=== PATIENT | female | born 1980 | race African-American/Black ===

== ENCOUNTER 2018-03-31 08:12 | Emergency (ER) | payer OTHER ==
--- OUTSIDE RECORDS SUMMARY | 2018-03-31 08:15 | XMS REPORT | Continuity of Care Document ---
:1980 Author Organization [facility] Address [address] [place] [address] Phone Unavailable Care Team Providers Name Role Phone DAHIANA MANZANO Primary Care Physician Insurance Providers Guarantor Sabino Marin Address [address] [place] [address] Email NO EMAIL Payer [facility] Policy Number [id number] Subscriber's Name Sabino Marin Relationship Self / Same As Patient Group Number NA Group Name NA Advance Directives Directive Response Recorded Date/Time Advance Directive on File No 03/30/18 8:09pm Patient/Family Given Education Material R/T Y - 03/30/18..AW 03/30/18 8:09pm Directives? Chief Complaint and Reason for Visit Chief Complaint Abdominal/GI/Nausea/Vomiting Reason for Visit Abdominal pain Problems Medical Problem Onset Date Status Abdominal pain Unknown Acute Abdominal pain Unknown Acute Abnormal posture Unknown Gas Unknown Acute Gas Unknown Acute Generalized weakness Unknown Acute Ileus Unknown Acute Pain around PEG tube site Unknown Acute Past Problems Medical Problem Onset Date Status Forehead laceration Unknown Acute Medications Current Home Medications Medication Dose Units Route Directions Days Qty Instructions Start Date Levetiracetam 500 Mg ORAL Twice A Day (Keppra 500 Mg*) 500 Mg Tab Polyethylene Glycol 17 Gm ORAL Twice Daily As 3350 * (Miralax *) Needed 3 350 Pow Past Home Medications Medication Directions Ordered Status Keppra , Discontinued Miralax , Discontinued Social History Social History Problem Response Recorded Date/Time Onset Date Status Hx Physical Abuse No 03/30/2018 8:09pm Not Applicable Not Applicable Smoking Status Start Date Stop Date Never smoker Hospital Discharge Instructions No hospital discharge instruction information available. Plan of Care Discharge Date 03/31/18 1:10am Instructions/Education Provided Abdominal Pain, Adult, [id number] Forms Provided Portal Welcome Letter Prescriptions See Medication Section Referrals DAHIANA MANZANO Address: [place] [address] Additional Instructions/Education FOLLOW UP WITH PRIMARY CARE DOCTOR NEEDED. CONTINUE TO ADMINISTER ANY MEDICATIONS PREVIOUSLY PRESCRIBED. RETURN TO ER FOR ANY FURTHER EMERGENCIES. Functional Status No functional status information available. Allergies, Adverse Reactions, Alerts Allergen Type Severity Reaction Status Last Updated No Known Allergies Allergy Unknown Active 12/03/13 Immunizations No immunization information available. Vital Signs Acute Vital Signs Vital Response Date/Time Blood Pressure 99/64 mm Hg 03/31/2018 1:16am Pulse Pulse Rate (adult) 56 beats per minute (60 - 100) 03/31/2018 1:16am Respiratory Rate 18 breaths per minute (10 - 24) 03/31/2018 1:16am Temperature Source Tympanic 03/31/2018 1:16am Height 5 ft 4 in 03/30/2018 8:09pm Weight 130 lb 03/30/2018 8:09pm Body Mass Index 22.3 kg/m^2 03/30/2018 8:09pm Results Laboratory Results Test Name Result Units Flags Reference Collection Result Comments Date/Time Date/Time White Blood 7.5 K/ul 4.0-11.5 03/30/2018 03/30/2018 Count 9:35pm 9:48pm Red Blood Count 4.59 M/ul 3.80-5.20 03/30/2018 03/30/2018 9:35pm 9:48pm Hemoglobin 11.6 g/dl 10.5-15.7 03/30/2018 03/30/2018 9:35pm 9:48pm Hematocrit 37.0 % 34.0-50.0 03/30/2018 03/30/2018 9:35pm 9:48pm Mean 80.6 fl 78-98 03/30/2018 03/30/2018 Corpuscular 9:35pm 9:48pm Volume Mean 25.2 pg L 26.2-33.4 03/30/2018 03/30/2018 Corpuscular 9:35pm 9:48pm Hemoglobin Mean 31.3 g/dl L 31.5-36.2 03/30/2018 03/30/2018 Corpuscular 9:35pm 9:48pm Hemoglobin Concent Red Cell 15.5 % 11.5-15.5 03/30/2018 03/30/2018 Distribution 9:35pm 9:48pm Width Platelet Count 204 K/ul 137-338 03/30/2018 03/30/2018 9:35pm 9:48pm Mean Platelet 12.9 fl H 8.4-11.8 03/30/2018 03/30/2018 Volume 9:35pm 9:48pm Neutrophils (%) 55.9 % 44.4-80.1 03/30/2018 03/30/2018 (Auto) 9:35pm 9:48pm Lymphocytes (%) 32.1 % 10.0-50.0 03/30/2018 03/30/2018 (Auto) 9:35pm 9:48pm Monocytes (%) 9.5 % 3.6-12.04 03/30/2018 03/30/2018 (Auto) 9:35pm 9:48pm Eosinophils (%) 0.8 % 0.0-5.41 03/30/2018 03/30/2018 (Auto) 9:35pm 9:48pm Basophils (%) 1.8 % H 0.0-0.79 03/30/2018 03/30/2018 (Auto) 9:35pm 9:48pm Random Glucose 95 mg/dL 74-106 03/30/2018 03/30/2018 9:35pm 10:05pm Blood Urea 10 mg/dL 6-20 03/30/2018 03/30/2018 Nitrogen 9:35pm 10:05pm Serum 276 L 280-300 03/30/2018 03/30/2018 Osmolality 9:35pm 10:05pm Creatinine 0.6 mg/dL 0.50-0.90 03/30/2018 03/30/2018 9:35pm 10:05pm Glomerular > 60.00 03/30/2018 03/30/2018 GFR RESULTS ARE REPORTED IN mL/min/1.73m2. Filtration Rate 9:35pm 10:05pm Calc Normal GFR: >60mL/min Moderately decreased GFR: 30-59 mL/min Severely decreased GFR: 15-29 mL/min Kidney Failure (or Dialysis): <15 mL/min The calculated eGFR is not valid for patients younger than 18 years or older than 75 years. BUN/Creatinine 16.7 12-03/30/2018 03/30/2018 Ratio 9:35pm 10:05pm Sodium Level 139 mmol/L 135-145 03/30/2018 03/30/2018 9:35pm 10:05pm Potassium Level 4.0 mmol/L 3.5-5.2 03/30/2018 03/30/2018 9:35pm 10:05pm Chloride Level 103 mmol/L 98-108 03/30/2018 03/30/2018 9:35pm 10:05pm Carbon Dioxide 23 mmol/L 21-32 03/30/2018 03/30/2018 Level 9:35pm 10:05pm Anion Gap 17.0 mEq/L 12-03/30/2018 03/30/2018 9:35pm 10:05pm Calcium Level 9.4 mg/dL 8.6-10.0 03/30/2018 03/30/2018 9:35pm 10:05pm Serum NEGATIVE NEG 03/30/2018 03/30/2018 Test, 9:35pm 9:53pm If a negative result is obtained but is suspected, Qualitative a new specimen should be collected after 48-72 hours and tested. If waiting 48 hrs is not medically advisable, the test result should be confirmed with at quantitative hCG assay. Procedures Procedure Status Date Provider(s) X-ray of abdomen, two views Completed 03/30/18 RADHA WATSON Computed tomography of abdomen and Completed 03/30/18 RADHA WATSON pelvis without contrast Encounters Encounter Location Arrival/Admit Date Discharge/Depart Date Attending Provider Departed [place] 03/30/18 7:57pm 03/31/18 1:10am AARON VILLALPADNO Emergency [facility] Recent Diagnosis
--- NOTE | 2018-03-31 10:01 | EDPHYS ---
Physician Documentation [facility] Name: Sabino Pedersen Age: 38 yrs Sex: Female : 1980 Arrival Date: 03/31/2018 Time: 08:14 Bed 14 Private MD: out of town, doctor ED Physician Carie Brand HPI: 03/31 08:35 This 38 yrs old Black Female presents to ER via Wheelchair with complaints of Abdominal cp Pain. 08:35 The patient presents with abdominal pain in the left upper quadrant. Onset: The cp symptoms/episode began/occurred 1 week(s) ago, and became worse yesterday. 08:35 Associated signs and symptoms: Pertinent negatives: diarrhea, fever, vomiting. 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 - Social history:: Smoking status: Patient/guardian denies using tobacco. - Ebola Screening: : Patient negative for fever greater than or equal to 101.5 degrees Fahrenheit, and additional compatible Ebola Virus Disease symptoms Patient denies exposure to infectious person Patient denies travel to an Ebola-affected area in the 21 days before illness onset No symptoms or risks identified at this time. ROS: 08:40 All other systems are negative. cp Exam: 08:47 Head/Face: Normocephalic, atraumatic. cp 08:47 Constitutional: The patient appears in no acute distress, alert, awake, non-toxic, well developed, well nourished. 08:47 Eyes: Periorbital structures: appear normal, Conjunctiva: normal, no exudate, no injection, Sclera: no appreciated abnormality, Lids and lashes: appear normal, bilaterally. 08:47 ENT: External ear(s): are unremarkable, Nose: is normal, Mouth: Lips: moist, Oral mucosa: moist, Posterior pharynx: Airway: no evidence of obstruction, patent. 08:47 Chest/axilla: Inspection: normal, Palpation: is normal, no crepitus, no tenderness. 08:47 Cardiovascular: Rate: normal, Rhythm: regular. cp 08:47 Respiratory: the patient does not display signs of respiratory distress, Respirations: normal, no use of accessory muscles, no retractions, no splinting, no tachypnea, labored breathing, is not present, Breath sounds: are clear throughout, no decreased breath sounds, no stridor, no wheezing. 08:50 Abdomen/GI: Inspection: gastrostomy tube noted LUQ w/o erythema noted, Bowel sounds: cp active, all quadrants, Palpation: soft, in all quadrants, mild abdominal tenderness, in the left upper quadrant around gastrostomy tube, rebound tenderness, is not appreciated, involuntary guarding, is not appreciated. 08:50 Skin: cellulitis, is not appreciated, no rash present. Vital Signs: 08:36 BP 101 / 68; Pulse 61; Resp 18; Temp 98.7; Pulse Ox 100% on R/A; Weight 58.97 kg; ca1 Height 5 ft. 4 in. (162.56 cm); Pain 8/10; 09:26 BP 97 / 67; Pulse 62; Resp 18; Pulse Ox 100% on R/A; ca1 08:36 Body Mass Index 22.31 (58.97 kg, 162.56 cm) ca1 MDM: 08:16 Patient medically screened. cp 09:53 Physician consultation: was contacted at 09:56, office of DR Collins. I spoke with cp nurse practitioner who will see patient in office immediately. Wants patient to be given regular dose of Keppra and to be kept npo. 10:00 Data reviewed: vital signs, nurses notes, and as a result, I will discharge patient. cp 03/31 08:29 Order name: [facility]. Order: g-tube patency check; Complete Time: 08:58 cp Administered Medications: 10:05 Drug: Keppra 500 mg {Note: administered via PEG tube.} Route: PO; ca1 10:09 Follow up: Response: Medication administered at discharge. ca1 Disposition: 10:20 Chart complete. cp 18:26 Co-signature as Attending Physician, Carie Brand MD. ma2 Disposition: 03/31/18 10:01 Discharged to Home. Impression: Encounter for attention to gastrostomy. - Condition is Stable. - Discharge Instructions: Gastrostomy Tube Home Guide, Adult. - Medication Reconciliation Form, Thank You Letter, Antibiotic Education, Prescription Opioid Use form. - Follow up: Boone Collins MD; When: Upon discharge from the Emergency Department; Reason: Recheck today's complaints, proceed to office for immediate follow-up. - Problem is new. - Symptoms are unchanged. Signatures: Saurabh Hernandez PA PA cp Alzahri, Mohammad, MD MD ma2 Lynn Negron RN RN ca1 Corrections: (The following items were deleted from the chart) 10:15 10:01 03/31/2018 10:01 Discharged to Home. Impression: Encounter for attention to ca1 gastrostomy. Condition is Stable. Forms are Medication Reconciliation Form, Thank You Letter, Antibiotic Education, Prescription Opioid Use. Follow up: Boone Collins; When: Upon discharge from the Emergency Department; Reason: Recheck today's complaints, proceed to office for immediate follow-up. Problem is new. Symptoms are unchanged. cp
--- NOTE | 2018-03-31 10:01 | ER ---
Nurse's Notes [facility] Name: Sabino Pedersen Age: 38 yrs Sex: Female : 1980 Arrival Date: 03/31/2018 Time: 08:14 Bed 14 Private MD: out of town, doctor Diagnosis: Encounter for attention to gastrostomy Presentation: 03/31 08:29 Presenting complaint: Mother states: pt complains of abdominal pain, started a week ago ca1 but worst yesterday. Pt is with PEG tube at [facility] that was inserted a year ago. Transition of care: patient was not received from another setting of care. Onset of symptoms was March 30, 2018. Risk Assessment: Do you want to hurt yourself or someone else? Patient reports no desire to harm self or others. Initial Sepsis Screen: Does the patient meet any 2 criteria? No. Patient's initial sepsis screen is negative. Does the patient have a suspected source of infection? Yes: Acute abdominal pain. Care prior to arrival: None. 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 - Social history:: Smoking status: Patient/guardian denies using tobacco. - Ebola Screening: : Patient negative for fever greater than or equal to 101.5 degrees Fahrenheit, and additional compatible Ebola Virus Disease symptoms Patient denies exposure to infectious person Patient denies travel to an Ebola-affected area in the 21 days before illness onset No symptoms or risks identified at this time. Screenin:40 Abuse screen: Denies threats or abuse. Denies injuries from another. Nutritional ca1 screening: No deficits noted. Tuberculosis screening: No symptoms or risk factors identified. Fall Risk Secondary diagnosis (15 points) seizures. Assessment: 08:40 Reassessment:. General: Appears in no apparent distress. Behavior is calm, cooperative. ca1 General:. Pain: Complains of pain in abdomen, around the PEG tube Pain does not radiate. Pain currently is 8 out of 10 on a pain scale. Pain began 1 day ago. Neuro: Level of Consciousness is awake, alert. Neuro: mother reports pt able to understand but unable to articulate. . Cardiovascular: Heart tones S1 S2 present Capillary refill < 3 seconds. Respiratory: Airway is patent Respiratory effort is even, unlabored, Respiratory pattern is regular, symmetrical, Breath sounds are clear bilaterally. GI: Abdomen is flat, non-distended, Bowel sounds present X 4 quads. Abd is soft Abdomen is tender to palpation in left lower quadrant. : No signs and/or symptoms were reported regarding the genitourinary system. EENT: No signs and/or symptoms were reported regarding the EENT system. Derm: Skin is intact, Skin is pink, warm \\T\\ dry. Musculoskeletal: contractures on right elbow and hand. foot drop on right foot. 08:59 Reassessment: flushed PEG tube with 60cc water. Flushed easily. Able to aspirate. ca1 Provider notified. Patient's mother states, "I am able to push and feed her okay, but I think that balloon maybe collapsed". 09:20 Reassessment: Patient appears in no apparent distress at this time. Patient and/or ca1 family updated on plan of care and expected duration. Pain level reassessed. Mary DELGADO at bedside, discussing options on replacing peg tube. 09:53 Reassessment: Mary DELGADO called GI Dr. Collins. Was instructed to send patient to his ca1 clinic and give seizure medication prior to ER departure. Vital Signs: 08:36 BP 101 / 68; Pulse 61; Resp 18; Temp 98.7; Pulse Ox 100% on R/A; Weight 58.97 kg; ca1 Height 5 ft. 4 in. (162.56 cm); Pain 8/10; 09:26 BP 97 / 67; Pulse 62; Resp 18; Pulse Ox 100% on R/A; ca1 08:36 Body Mass Index 22.31 (58.97 kg, 162.56 cm) ca1 ED Course: 08:14 Patient arrived in ED. mr 08:15 out of town, doctor is Private Physician. mr 08:16 Saurabh Hernandez PA is PHCP. cp 08:16 Carie Brand MD is Attending Physician. cp 08:16 Lynn Negron, ROBSON is Primary Nurse. ca1 08:32 Triage completed. ca1 08:36 Arm band placed on right wrist. ca1 08:40 Patient has correct armband on for positive identification. Placed in gown. Bed in low ca1 position. Side rails up X2. Pulse ox on. NIBP on. Warm blanket given. 09:59 Boone Collins MD is Referral Physician. cp 10:13 No provider procedures requiring assistance completed. Patient did not have IV access ca1 during this emergency room visit. Administered Medications: 10:05 Drug: Keppra 500 mg {Note: administered via PEG tube.} Route: PO; ca1 10:09 Follow up: Response: Medication administered at discharge. ca1 Outcome: 10:01 Discharge ordered by MD. cp 10:13 Discharged to home via wheelchair, with mother. ca1 10:13 Condition: stable 10:13 Discharge instructions given to mother. Instructed on discharge instructions, follow up and referral plans. Demonstrated understanding of instructions, follow-up care. 10:15 Patient left the ED. ca1 Signatures: Jania Salgado mr Saurabh Hernandez PA PA cp Lynn Negron RN RN ca1
[2018-03-31] MEDS ORDERED: levETIRAcetam 500 MG TAB ONE (10:11)
== END 2018-03-31 10:15 | disposition home or self-care (01) ==
LOC: ER 08:12
DX: Z43.1 Encounter for attention to gastrostomy (principal); Z88.8 Allergy status to other drugs, medicaments and biological substances
CPT/HCPCS: 99283